=== PATIENT | female | born 1935 | race Caucasian/White ===

== ENCOUNTER 2017-01-03 06:09 | Observation (INO) | END 2017-01-03 20:42 | disposition home or self-care (01) | DX: I25.110 Atherosclerotic heart disease of native coronary artery with unstable angina pectoris (principal) | CPT/HCPCS: 71010; 80048; 85025; 85610; 85730; 93005; 93458; C1725; C1769; C1874; C1887; C9600; G0378; J1644; J2250; J2270; J3010; J7040; Q9967 ==